=== PATIENT | female | born 1965 ===

== ENCOUNTER 2018-01-26 16:52 | Emergency (ER) | payer SELFPAY ==
[2018-01-26 16:52] VITALS: BMI 28.4
[2018-01-26] MEDS ORDERED: Sodium Chloride 0.9% 1,000 ML IV ONE (17:22)
[2018-01-26] MEDS ORDERED: Sodium Chloride 0.9% 1,000 ML ONE (17:35)
[2018-01-26 17:45] LABS: BASO # 0.1 K/uL (0.0-0.2); BASO % 0.9 % (0.0-2.0); EOS # 1.1 K/uL (0.0-0.7); EOS % 12.1 % (0.0-4.0); HEMOGLOBIN 13.4 g/dL (11.0-16.0); LYMPH % 34.6 % (20.0-40.0); MEAN CELL VOLUME 82.4 fL (81.0-99.0); MEAN CORPUSCULAR HEMOGLOBIN 27.9 pg (27.0-31.0); MEAN CORPUSCULAR HGB CONC 33.8 g/dL (33.0-37.0); MEAN PLATELET VOLUME 9.5 fL (7.2-11.7); MONO # 0.5 K/uL (0.0-0.8); MONO % 6.2 % (0.0-10.0); NEUT % 46.2 % (50.0-75.0); NRBC % 0.1 % (0.0-2.0); RBC 4.8 Mil/uL (3.80-5.20); RED CELL DISTRIBUTION WIDTH 13.5 % (11.5-14.5); WHITE BLOOD COUNT 8.7 K/uL (4.8-10.8)
[2018-01-26 17:51] LABS: SQUAMOUS EPITHIAL 7 /hpf (0-5); URINE BACTERIA MANY (<OCC); URINE BILIRUBIN NEGATIVE (NEGATIVE); URINE BLOOD 2+ (NEGATIVE); URINE CLARITY Hazy (Clear); URINE COLOR Yellow (YELLOW); URINE GLUCOSE (UA) 3+ mg/dL (Normal); URINE LEUKOCYTE ESTERASE 3+ Leu/uL (Negative); URINE PROTEIN NEGATIVE (NEGATIVE); URINE UROBILINOGEN NORMAL mg/dL (0.2-1.0)
[2018-01-26 17:58] LABS: ALB/GLOB RATIO 1.1 (1.0-2.1); ALT/SGPT 33 U/L (9-52); AST/SGOT 26 U/L (14-36); BLOOD UREA NITROGEN 9 mg/dL (7-17); CALCIUM 9.2 mg/dl (8.6-10.4); GFR NON-AFRICAN AMERICAN > 60
[2018-01-26] MEDS ORDERED: cefTRIAXone IV 1 gm in Dextros 50 ML IV ONE (18:13)
--- NOTE | 2018-01-26 18:17 | C.PDOC ---
History Of Present Illness 52 yo female with PMH DM came to ER c/o urinary frequency, dysuria, subjective fever and back pain for 4 days. (+) vomiting yesterday. Reports taking her chronic medication today. Denies sob, chest pain, abdominal pain, vaginal discharge or bleeding. Time Seen by Provider: 01/26/18 17:12 Chief Complaint (Nursing): Female Genitourinary History Per: Patient, Family History/Exam Limitations: no limitations Onset/Duration Of Symptoms: Days Current Symptoms Are (Timing): Still Present Quality Of Discomfort: Burning Associated Symptoms: Fever, Back Pain Past Medical History Vital Signs: Last Vital Signs Temp 98.7 F 01/26/18 20:30 Pulse 65 01/26/18 20:30 Resp 18 01/26/18 20:30 BP 111/70 01/26/18 20:30 Pulse Ox 98 01/26/18 20:30 - Medical History PMH: Diabetes, Gastritis Surgical History: Cholecystectomy Family History: States: Diabetes - Social History Hx Alcohol Use: No Hx Substance Use: No Review Of Systems Except As Marked, All Systems Reviewed And Found Negative. Constitutional: Positive for: Fever Genitourinary: Positive for: Dysuria, Hematuria, Pelvic Pain Physical Exam - Physical Exam Appears: Well, Non-toxic, No Acute Distress Skin: Normal Color, Warm, Dry Head: Atraumatic, Normacephalic Eye(s): bilateral: Normal Inspection, PERRL, EOMI Nose: Normal Oral Mucosa: Moist Neck: Normal, Normal ROM, Supple Chest: Symmetrical Cardiovascular: Rhythm Regular Respiratory: Normal Breath Sounds, No Accessory Muscle Use Gastrointestinal/Abdominal: Soft, Tenderness (suprapubic tenderness) Back: No CVA Tenderness, No Vertebral Tenderness, Paraspinal Tenderness (lower paralumbar) Extremity: Normal ROM Neurological/Psych: Oriented x3, Normal Speech, Normal Cognition ED Course And Treatment - Laboratory Results Result Diagrams: 01/26/18 17:41 01/26/18 17:41 O2 Sat by Pulse Oximetry: 97 Progress Note: Rocephin ordered. Pt is afebrile, WBC WNL and tolerating PO, will try outpt therapy. Discussed return precautions with pt and daughter, verbalized understanding. Case discsused with marycruz Lizarraga plan and treatment. Disposition - Disposition Disposition: HOME/ ROUTINE Disposition Time: 18:20 Condition: STABLE Additional Instructions: Follow up with your doctor in 1-2 days. Return to ER if symptoms persist or worsen. Kelvin un seguimiento con quinones mdico en 1-2 spears. Regrese a la nicky de emergencias si los sntomas persisten o empeoran. Prescriptions: Ciprofloxacin HCl [Cipro] 500 mg PO BID #14 tab Instructions: Urinary Tract Infection, Adult (DC) Forms: [employer] ([employer]) Print Language: URDU - Clinical Impression Clinical Impression: UTI (urinary tract infection)
[2018-01-26 20:31] VITALS: BP 111/70; PULSE 65; RESP 18; TEMP 98.7
[2018-01-28 11:51] VITALS: O2SAT 97
== END 2018-01-26 20:50 | disposition home or self-care (01) ==
LOC: C.ER 16:52
DX: N39.0 Urinary tract infection, site not specified (principal); E11.9 Type 2 diabetes mellitus without complications
CPT/HCPCS: 80053; 81001; 82948; 85025; 87086; 87181; 96374; 99285; J0696; J7030